=== PATIENT | female | born 1990 | race Caucasian/White ===

== ENCOUNTER 2019-02-04 13:22 | Emergency (ER) | payer OTHER ==
[2019-02-04 13:31] VITALS: BMI 39.8
[2019-02-04] MEDS ORDERED: ONDANSETRON 4 MG/2 ML VIAL IVPUSH ONE (13:40)
[2019-02-04] MEDS ORDERED: SODIUM CHLORIDE 1,000 ML IV STA (13:40)
[2019-02-04] MEDS ORDERED: FAMOTIDINE 20 MG/50 ML IVPB 20 MG/50 ML MG IVPB ONE ×2 (13:40→14:51)
--- NOTE | 2019-02-04 13:40 | PDOC ---
History of Present Illness - General Chief Complaint: Nausea/Vomiting Stated Complaint: VOMITING BLOOD/ HEADACHE Time Seen by Provider: 02/04/19 13:38 History Source: Patient Exam Limitations: No Limitations - History of Present Illness Initial Comments: Pt is a 28 yo F, with no significant PMH, who is presenting with complaints of nausea and vomiting since yesterday. Pt states she had multiple episodes of vomiting, with red streaks mixed in after multiple wretching episodes. She has never had hematemesis or blood in BMs, and does not take AC medication. Pt was unable to tolerate PO intake today. Pt recently had a home test a few weeks ago, and this would be her first . Pt also endorses cramping lower abdominal pain "for weeks," but denies any vaginal discharge or bleeding. Pt has not begun taking vitamins or seen an DISTRICT [employer] REPORTER doctor. Pt denies any fevers/chills, headache, vision changes, syncope, chest pain, palpitations, SOB, abdominal pain, urinary symptoms, diarrhea/constipation, or leg swelling. Allergies: NKDA PCP: Dr. Hartley Social: Pt denies any cigarette, alcohol, or drug use. Pt denies any recent travel or sick contacts. Surgical: no relevant history. Family: no relevant history. 02/04/19 15:15 02/04/19 17:00 Past History - Travel Traveled outside of the country in the last 30 days: No Close contact w/someone who was outside of country & ill: No - Past Medical History Allergies/Adverse Reactions: Allergies Allergy/AdvReac Type Severity Reaction Status Date / Time No Known Allergies Allergy Verified 02/04/19 13:31 Home Medications: Ambulatory Orders Cephalexin Monohydrate [Keflex -] 500 mg PO BID #14 capsule 02/04/19 Doxylamine Succinate/Vit B6 [Hue Morrison 10-10 mg Tablet] 1 each PO PRN PRN #14 tablet. MDD 1 tab 02/04/19 105/Iron/Folic AC/Dha [Prena1 True Combo Pack] 1 each PO DAILY #30 combo..pkg MDD 1 tab 02/04/19 COPD: No - Psycho Social/Smoking Cessation Hx Smoking History: Never smoked Abd/GI Specific PMHX - Complaint Specific PMHX Colitis: No Diverticulitis: No Gall Bladder Disease: No GERD: No Hepatitis: No Irritable Bowel Synd (IBS): No Pancreatitis: No GI Ulcer Disease: No Review of Systems - Review of Systems Able to Perform ROS?: Yes Is the patient limited Dominican proficient: No Constitutional: Yes: Weight Stable. No: Chills, Diaphoresis, Fever, Loss of Appetite, Weakness HEENTM: No: Recent change in vision, Nose Congestion, Throat Pain, Throat Swelling, Difficulty Swallowing Respiratory: No: Cough, Orthopnea, Shortness of Breath Cardiac (ROS): No: Chest Pain, Edema, Irregular Heart Rate, Lightheadedness, Palpitations, Syncope, Chest Tightness ABD/GI: Yes: Nausea, Poor Appetite, Poor Fluid Intake, Vomiting, Abdominal cramping. No: Abdominal Distended, Blood Streaked Bowels, Constipated, Diarrhea , Rectal Bleeding : No: Burning, Dysuria, Frequency, Hematuria, Pain, Urgency Musculoskeletal: No: Back Pain, Joint Pain, Muscle Pain, Muscle Weakness Integumentary: No: Change in Color, Pallor, Rash Neurological: No: Headache, Numbness, Weakness, Unsteady Gait, Dizziness Psychiatric: No: Sleep Pattern Change, Change in Appetite Endocrine: No: Increased Urine, Change in Weight Hematologic/Lymphatic: No: Anemia, Blood Clots, Easy Bleeding, Easy Bruising All Other Systems: Reviewed and Negative *Physical Exam - Vital Signs Last Vital Signs Temp Pulse Resp BP Pulse Ox 98 F 75 18 120/67 98 02/04/19 13:27 02/04/19 13:27 02/04/19 13:27 02/04/19 13:27 02/04/19 13:27 - Physical Exam Vitals stable, pt afebrile. Pt in NAD, morbidly obese body habitus. Pt alert and oriented x3. women specialist generally intact, muscular strength and sensation intact. No midline spinal tenderness, step-offs, or crepitus. Head normocephalic, atraumatic. Eyes PERRLA, EOMI. Oropharynx without erythema or exudates, no LAD b/l. No nasal congestion. Hearing intact. Clear heart sounds, S1/S2, no JVD, b/l pedal edema, or heart murmur. Clear lung sounds, no respiratory distress, wheezes, crackles, or accessory muscle use. Mild epigastric TTP, with no rebound, no guarding. No fundal height appreciated. Abdomen soft, non-distended, and with normoactive bowel sounds. No CVA TTP. Skin without jaundice or rash. 02/04/19 17:04 ED Treatment Course - LABORATORY CBC & Chemistry Diagram: 02/04/19 14:40 02/04/19 14:40 Medical Decision Making - Medical Decision Making Pt was seen at bedside, also will be seen by attending Dr. Estrada. Pt presenting with nausea/vomiting, likely 2/2 , with positive home test. Will evaluate with labs for anemia, beta-hcg (molar ), electrolyte imbalances, urine infection. Will obtain bedside POCUS for HR and IUP. Provided 1 L IV NS, 4 mg IV zofran, and 20 mg IV pepcid for improvement of nausea and vomiting. Will continue to reassess pt and monitor for symptomatic improvement. CBC and CMP WNL Beta hcg level appropriate Bedside POCUS showed good HR and early IUP UA with some bacteruria -- will treat with keflex Pt improved after interventions, abdomen soft and non-tender Sent keflex, vitamins, and diclegis to pts pharmacy. Strict return precautions provided with pt understanding. F/u with PCP and OB. 02/04/19 17:05 Discharge - Discharge Information Problems reviewed: Yes Clinical Impression/Diagnosis: Nausea and vomiting Qualifiers: Vomiting type: unspecified Vomiting Intractability: non-intractable Qualified Code(s): R11.2 - Nausea with vomiting, unspecified Qualifiers: Weeks of gestation: less than 8 weeks Qualified Code(s): Z3A.01 - Less than 8 weeks gestation of Condition: Improved Disposition: HOME - Admission No - Additional Discharge Information Prescriptions: Cephalexin Monohydrate [Keflex -] 500 mg PO BID #14 capsule Doxylamine Succinate/Vit B6 [Hue Morrison 10-10 mg Tablet] 1 each PO PRN PRN #14 tablet. MDD 1 tab PRN Reason: Nausea 105/Iron/Folic AC/Dha [Prena1 True Combo Pack] 1 each PO DAILY #30 combo..pkg MDD 1 tab - Follow up/Referral Referrals: Emperatriz Bird MD [Staff Physician] - Odilia Moon MD [Primary Care Provider] - - Patient Discharge Instructions Patient Printed Discharge Instructions: DI for Nausea -- Adult Additional Instructions: Please return to the emergency department with any new or worsening symptoms or concerns. Please follow up with your nailing machine feeder physician and/or primary care physician within 72 hours. - Post Discharge Activity
[2019-02-04 14:49] LABS: BASO % 0.9 % (0-2.0); EOS % 0.8 % (0-4.5); HEMATOCRIT 37.9 % (32.4-45.2); HEMOGLOBIN 12.6 GM/dL (10.7-15.3); LYMPH % 30.8 % (8-40); MCH 27.9 pg (25.7-33.7); MCHC 33.1 g/dl (32.0-36.0); MEAN CELL VOLUME 84.3 fl (80-96); MEAN PLT VOLUME 8.5 fl (7.5-11.1); MONO % 8.2 % (3.8-10.2); NEUT % 59.3 % (42.8-82.8); PLATELET COUNT 301 K/MM3 (134-434); RDW 14.5 % (11.6-15.6); WHITE BLOOD COUNT 10.2 K/mm3 (4.0-10.0)
[2019-02-04] MEDS ORDERED: ONDANSETRON 4 MG/2 ML VIAL ONE (14:51)
[2019-02-04 15:24] LABS: ALBUMIN 3.2 g/dl (3.4-5.0); BILIRUBIN,TOTAL 0.4 mg/dL (0.2-1); BLOOD UREA NITROGEN 6.4 mg/dL (7-18); CALCIUM 8.7 mg/dL (8.5-10.1); CREATININE 0.6 mg/dL (0.55-1.3); POTASSIUM 4.6 mmol/L (3.5-5.1); TOT PROT 7.2 g/dl (6.4-8.2)
--- NOTE | 2019-02-04 15:46 | PDOC ---
Attending Attestation - Resident Resident Name: Claudette Couch - ED Attending Attestation I have performed the following: I have examined & evaluated the patient, The case was reviewed & discussed with the resident, I agree w/resident's findings & plan, Exceptions are as noted - HPI HPI: 02/04/19 16:11 28y F (LMP 11/23/2018) without other pmhx presents with complaint of n/v x 1 week, since last night with blood tingued (speckled) vomitus associated with intermittent burning nonradiating epigastric pain. Pt notes the vomiting has been going on for approx 1 month. denies any f/c, vag bleeding, diarrhea, dysuria, cp, sob. pt has no ob, recently moved to [place] - Physicial Exam PE: 02/04/19 17:11 general: no acute distress abd: soft notnender,. no cva tenderness, no rebound/guarding ext no LE edema - Medical Decision Making 02/04/19 16:13 labs reviewed bedside US reviewed with IUP and normal FHR Pt feeling improved suspect mild gastritis ua reviewed will start her on vitamins will dc with ob fu return precautions were dsicused
[2019-02-04 15:49] LABS: EPI CELLS 2.5 /HPF (0-5/HPF); HYALINE CASTS 4 /lpf (0-8); PH,URINE 8.5 (5.0-8.0); URINE APPEARANCE CLEAR; URINE BACTERIA 17.4 /hpf (NEGATIVE); URINE BILIRUBIN NEGATIVE (NEGATIVE); URINE COLOR YELLOW; URINE GLUCOSE (UA) NEGATIVE (NEGATIVE); URINE KETONE NEGATIVE (NEGATIVE); URINE LEUK ESTERASE TRACE (NEGATIVE); URINE NITRITE NEGATIVE (NEGATIVE); URINE PROTEIN NEGATIVE (NEGATIVE); URINE RBC 1 /hpf (0-4); URINE UROBILINOGEN 0.2 mg/dL (0.2-1.0); URINE WBC 12 /hpf (0-5)
[2019-02-04] MEDS ORDERED: CEPHALEXIN MONOHYDRATE 500 MG CAPSULE (UD) PO ONE (16:28)
[2019-02-04] MEDS ORDERED: CEPHALEXIN MONOHYDRATE 500 MG CAPSULE (UD) ONE (16:57)
[2019-02-04 17:08] VITALS: BP 109/63; PULSE 68; TEMP 98.7
== END 2019-02-04 17:26 | disposition home or self-care (01) ==
LOC: JER 13:22
PROC: 3E033GC Introduction of Other Therapeutic Substance into Peripheral Vein, Percutaneous Approach (ICD-10-PCS; principal; 2019-02-04)
PROC: 3E033GC Introduction of Other Therapeutic Substance into Peripheral Vein, Percutaneous Approach (ICD-10-PCS; 2019-02-04)
PROC: BY49ZZZ Ultrasonography of First Trimester, Single Fetus (ICD-10-PCS; 2019-02-04)
DX: O26.891 Other specified pregnancy related conditions, first trimester (principal); K29.70 Gastritis, unspecified, without bleeding; Z3A.01 Less than 8 weeks gestation of pregnancy
CPT/HCPCS: 36415; 76801-TC; 76815; 80053; 81003; 83690; 84702; 85025; 87086; 96365; 96375; 99284-25; J7030

== ENCOUNTER 2019-09-21 20:30 | Inpatient (IN) | payer OTHER ==
--- NOTE | 2019-09-21 22:24 | HP ---
Past Medical History - Primary Care Physician PCP:: Nithin Mariano - Admission Chief Complaint: 40 wweks , rom History of Present Illness: 28 yo g 1 p0 40 weeks with rom since 745 pm tonight , no bleeding, no fever, good fm cx 1 cm, 50 vx -3 mr , mec stain AF. , efw 7.5 lb History Source: Patient Limitations to Obtaining History: No Limitations - Past Surgical History Hx Myomectomy: No Hx Transabdominal Cerclage: No - Smoking History Smoking history: Never smoked Home Medications - Allergies Allergies/Adverse Reactions: Allergies Allergy/AdvReac Type Severity Reaction Status Date / Time No Known Allergies Allergy Verified 09/20/19 22:47 - Home Medications Home Medications: Ambulatory Orders Cephalexin Monohydrate [Keflex -] 500 mg PO BID #14 capsule 02/04/19 Doxylamine Succinate/Vit B6 [Diclegis Dr 10-10 mg Tablet] 1 each PO PRN PRN #[address] MDD 1 tab 02/04/19 105/Iron/Folic AC/Dha [Prena1 True Combo Pack] 1 each PO DAILY #30 combo..pkg MDD 1 tab 02/04/19 Review of Systems - Review of Systems Constitutional: reports: No Symptoms Eyes: reports: No Symptoms HENT: reports: No Symptoms Neck: reports: No Symptoms Cardiovascular: reports: No Symptoms Respiratory: reports: No Symptoms Gastrointestinal: reports: No Symptoms Genitourinary: reports: No Symptoms Breasts: reports: No Symptoms Reported Musculoskeletal: reports: No Symptoms Integumentary: reports: No Symptoms Neurological: reports: No Symptoms Endocrine: reports: No Symptoms Hematology/Lymphatic: reports: No Symptoms Psychiatric: reports: No Symptoms Physical Exam - Maternity Constitutional: Yes: Obese - Abdominal Exam/OB Fundal Height: 40 Number of Fetuses: Single Presentation: Vertex Contractions: Yes Regularity: Irregular Monitor Mode: External Accelerations: Non-Uniform Decelerations: None - Vaginal Exam/OB Vaginal Bleeding: No Speculum Exam: No Dilatation (cm): 1 Effacement (%): 50 Amniotic Membrane Status: Ruptured Nitrazine Test: Positive Amniotic Fluid: Yes: Meconium Stained Presentation: Vertex/Position Station: -3 - Physical Exam Edema: Yes Edema: LLE: Trace, RLE: Trace Deep Tendon Reflex Grade: Normal +2 Psychiatric: Yes: WNL Hemorrhage Risk Assessment - Risk Factors Medium Risk Factors: Yes: None High Risk Factors: Yes: None Risk Score: 1 Risk Level: Medium Risk Problem List - Problems (1) 40 weeks gestation of Code(s): Z3A.40 - 40 WEEKS GESTATION OF (2) First stage of labor established Code(s): VEW6882 - (3) Obesity complicating childbirth Code(s): O99.214 - OBESITY COMPLICATING CHILDBIRTH Assessment/Plan admit fhm , cervidil induction pain management
[2019-09-21] MEDS ORDERED: DINOPROSTONE 10 MG VAGINAL SUPPOSITORY VG ONE ×2 (22:29→23:04)
[2019-09-21] MEDS ORDERED: BUTORPHANOL TARTRATE 2 MG/ML VIAL IVPUSH ONE (22:29)
[2019-09-21] MEDS ORDERED: PROMETHAZINE HCL 25 MG/1 ML VIAL IVPUSH ONE (22:29)
[2019-09-21] MEDS: ELECTROLYTE-148 SOLN 1,000 ML IV SCH (22:30)
[2019-09-21 22:37] LABS: BASO % 0.2 % (0-2.0); EOS % 0.6 % (0-4.5); HEMATOCRIT 35.1 % (32.4-45.2); HEMOGLOBIN 11.8 GM/dL (10.7-15.3); LYMPH % 24.3 % (8-40); MCHC 33.7 g/dl (32.0-36.0); MEAN CELL VOLUME 86.1 fl (80-96); MEAN PLT VOLUME 9.9 fl (7.5-11.1); MONO % 7.7 % (3.8-10.2); NEUT % 67.2 % (42.8-82.8); PLATELET COUNT 175 K/MM3 (134-434); RBC 4.07 M/mm3 (3.60-5.2); WHITE BLOOD COUNT 10.1 K/mm3 (4.0-10.0)
[2019-09-21 22:45] LABS: INR 0.92 (0.83-1.09); PROTHROMBIN TIME (PATIENT) 10.9 SEC (9.7-13.0)
[2019-09-21 23:02] VITALS: BMI 47.0
[2019-09-21 23:02] LABS: BLOOD UREA NITROGEN 4.8 mg/dL (7-18); CALCIUM 9.2 mg/dL (8.5-10.1); CREATININE 0.5 mg/dL (0.55-1.3); POTASSIUM 3.7 mmol/L (3.5-5.1)
--- NOTE | 2019-09-21 23:12 | PD.OB.PROG ---
Past Medical History - Primary Care Physician PCP:: Nithin Mariano Documenting Provider Type: Laborist - Admission Chief Complaint: ROM - Nursing Documentation Maternal Triage Index: Maternal Triage Index ( Priority 3, Prompt MFTI) Hemorrhage Risk Assessment: Risk Level Low Risk High Level Risk Factors for None Hemorrhage Medium Level Risk Factors for None of the above Hemorrhage Low Level Risk Factors for None of the above Hemorrhage Nursing Documentation Reviewed: Yes - Past Medical History DIRECTOR GLOBAL DEVELOPMENT: Denies/None Cardio/Vascular: Denies/None Pulmonary: Denies/None Gastrointestinal: Denies/None Hepatobiliary: Denies/None Renal/: Denies/None ...: 1 ...Para: 0 ...Term: 0 ...: 0 ...Spon : 0 ...Induced : 0 ...Living Children: 0 ...Multiple Gestation: 0 ...LMP: 11/23/18 ... Weeks Gestation by Dates: 40.0 ...EDC by Dates: 08/30/19 ...EDC by Sono: 09/21/19 Heme/Onc: Denies/None Infectious Disease: Denies/None Psych: Denies/None Musculoskeletal: Denies/None Rheumatology: Denies/None ENT: Denies/None Endocrine: Denies/None Dermatology: Denies/None - Past Surgical History Past Surgical History: Yes: None - Smoking History Smoking history: Never smoked Have you smoked in the past 12 months: No - Alcohol/Substance Use Hx Alcohol Use: No Review of Systems - Review of Systems Constitutional: reports: No Symptoms Eyes: reports: No Symptoms HENT: reports: No Symptoms Neck: reports: No Symptoms Cardiovascular: reports: No Symptoms Respiratory: reports: No Symptoms Gastrointestinal: reports: No Symptoms Genitourinary: reports: No Symptoms Breasts: reports: No Symptoms Reported Musculoskeletal: reports: No Symptoms Integumentary: reports: No Symptoms Neurological: reports: No Symptoms Endocrine: reports: No Symptoms Hematology/Lymphatic: reports: No Symptoms Psychiatric: reports: No Symptoms Physical Exam - Obstetrical Vital Signs: Vital Signs Temperature 98.7 F 09/21/19 20:30 Pulse Rate 61 09/21/19 20:30 Respiratory Rate 20 09/21/19 20:30 Blood Pressure 126/70 09/21/19 20:30 O2 Sat by Pulse Oximetry (%) Constitutional: Yes: Well Nourished, No Distress, Calm Eyes: Yes: WNL, Conjunctiva Clear, EOM Intact HENT: Yes: WNL, Atraumatic, Normocephalic Neck: Yes: WNL, Supple, Trachea Midline Cardiovascular: Yes: WNL, Regular Rate and Rhythm Lungs: Clear to auscultation Breast(s): Yes: WNL - Abdominal Exam/OB Fundal Height: 42 Contractions: Yes Regularity: Irregular Intensity: Mild Monitor Mode: External Heart Rate (range): 140 Heart Rate Location: [facility] Category: I Accelerations: Uniform Decelerations: None - Vaginal Exam/OB Vaginal Exam Deferred: No Vaginal Bleeding: No Dilatation (cm): 0 Effacement (%): 0 Amniotic Membrane Status: Ruptured Nitrazine Test: Positive Amniotic Fluid: Yes: Meconium Stained Meconium: Moderate Presentation: Vertex/Position Station: -2 - Physical Exam Musculoskeletal: Yes: WNL Extremities: Yes: WNL Integumentary: Yes: WNL ...Motor Strength: WNL Psychiatric: Yes: WNL - Labs Lab Results: CBC, BMP 09/21/19 22:30 09/21/19 22:30 Problem List - Problems (1) PROM (premature rupture of membranes) Code(s): O42.90 - MELODY ROM, 7TH0 BETW RUPT & ONST LABR, UNSP WEEKS OF GEST (2) 40 weeks gestation of Code(s): Z3A.40 - 40 WEEKS GESTATION OF Assessment/Plan PROM at term. Meconium. D/W Dr. Goldman. Cervidil induction. Pt. understands and agrees.
--- NOTE | 2019-09-21 23:22 | PN ---
Progress Note (short form) - Note Progress Note: Cervidil placed at 2100 hrs Problem List - Problems (1) PROM (premature rupture of membranes) Code(s): O42.90 - MELODY ROM, 7TH0 BETW RUPT & ONST LABR, UNSP WEEKS OF GEST (2) 40 weeks gestation of Code(s): Z3A.40 - 40 WEEKS GESTATION OF
[2019-09-21] MEDS ORDERED: CLINDAMYCIN PHOSPHATE 600 MG/4 ML VIAL ONE ×2 (23:24→23:25)
[2019-09-21] MEDS ORDERED: CLINDAMYCIN 900 MG PREMIX IVPB 900 MG/50 ML BAG IVPB ONE (23:30)
[2019-09-21] MEDS: CLINDAMYCIN 600MG PREMIX IVPB 600 MG/50 ML BAG IVPB SCH (23:30)
[2019-09-22] MEDS ORDERED: PROMETHAZINE HCL 25 MG/1 ML VIAL ONE (00:06)
[2019-09-22] MEDS ORDERED: BUTORPHANOL TARTRATE 2 MG/ML VIAL ONE (00:06)
[2019-09-22] MEDS ORDERED: CLINDAMYCIN PHOSPHATE 600 MG/4 ML VIAL ONE ×3 (05:27→17:32)
[2019-09-22] MEDS: CLINDAMYCIN 600MG PREMIX IVPB 600 MG/50 ML BAG IVPB SCH ×4 (05:30→11:49)
--- NOTE | 2019-09-22 05:59 | PN ---
Progress Note, Labor Vaginal Exam #2 Labor Exam Date: 09/22/19 Labor Exam Time: 06:00 Heart Rate (range): 140 Dilatation: 3 Effacement (%): 80 Amniotic Membrane Status: Ruptured Presentation: Vertex/Position Station: -2 (Cervidil still in. Epidural called.)
[2019-09-22] MEDS ORDERED: FENTANYL/BUPIVACAINE/NS/PF - PCEA - 50 ML DISP.SYRIN EP ONE ×2 (06:05→10:42)
[2019-09-22] MEDS ORDERED: PCA PUMP NR ONE (06:06)
[2019-09-22] MEDS ORDERED: FENTANYL/BUPIVACAINE/NS/PF - PCEA - 50 ML DISP.SYRIN EP SCH (06:15)
[2019-09-22] MEDS ORDERED: NALOXONE HCL 0.4 MG/ML VIAL IVPUSH PRN (06:15)
[2019-09-22] MEDS ORDERED: BUPIVACAINE HCL/PF 0.25% (2.5MG/ML) 10 ML VIAL ONE (06:17)
[2019-09-22] MEDS: DEXTROSE 5%-LACTATED RINGERS 1,000 ML IV SCH ×2 (08:09→23:49)
[2019-09-22] MEDS: ELECTROLYTE-148 SOLN 1,000 ML IV SCH (09:00)
--- NOTE | 2019-09-22 10:52 | PN ---
Progress Note, Labor Vaginal Exam #3 Labor Exam Date: 09/22/19 Labor Exam Time: 10:50 Heart Rate (range): 140 Dilatation: 4 Effacement (%): 100 Amniotic Membrane Status: Ruptured Presentation: Vertex/Position Station: -2 (Cervidil out. We'll start Oxytocin.)
[2019-09-22] MEDS ORDERED: OXYTOCIN 30 UNITS in 0.9% NS 30 UNIT/500 ML INFUS.BAG IVPB ONE (11:37)
[2019-09-22] MEDS ORDERED: GENTAMICIN 80 MG PREMIXED IVPB 80 MG/100 ML BAG IVPB STA (13:13)
[2019-09-22] MEDS ORDERED: GENTAMICIN SO4 80 MG/2 ML VIAL ONE (13:31)
[2019-09-22] MEDS ORDERED: LIDO 2%/EPI 1:200000 PRESRVFRE (20 ML SDVIAL) ONE (14:24)
[2019-09-22] MEDS ORDERED: PROPOFOL 20 ML ONE (14:30)
[2019-09-22] MEDS ORDERED: CITRIC ACID/SODIUM CITRATE 30 ML UNIT-DOSE CUP PO ONE (14:37)
[2019-09-22] MEDS ORDERED: OXYTOCIN 20 UNITS in 0.9% NS 20 UNIT/1,000 ML INFUS.BAG IV ONE ×2 (15:23→16:42)
[2019-09-22] MEDS ORDERED: morphine SULFATE/PF 0.5 MG/ML (2cc Syringe - QUVA) ONE ×2 (16:00)
--- NOTE | 2019-09-22 16:03 | PN ---
Progress Note (short form) - Note Progress Note: I assisted Dr Mariano at c/section and BTL for the entirety of the case. Problem List - Problems (1) PROM (premature rupture of membranes) Code(s): O42.90 - MELODY ROM, 7TH0 BETW RUPT & ONST LABR, UNSP WEEKS OF GEST (2) 40 weeks gestation of Code(s): Z3A.40 - 40 WEEKS GESTATION OF
[2019-09-22] MEDS ORDERED: BENZOCAINE 28 GM HEMORRHOIDAL OINTMENT PR PRN (16:26)
[2019-09-22] MEDS ORDERED: oxyCODONE HCL 5 MG TABLET PO PRN ×2 (16:26)
[2019-09-22] MEDS ORDERED: BENZOCAINE 20% 57 GM BOTTLE TP PRN (16:26)
[2019-09-22] MEDS ORDERED: METHYLERGONOVINE MALEATE 0.2 MG/1 ML AMP IM PRN (16:26)
[2019-09-22] MEDS ORDERED: WITCH HAZEL 50% (TUCKS) 40 PAD/JAR PAD TP PRN (16:26)
[2019-09-22] MEDS ORDERED: diphenhydrAMINE HCL 25 MG CAPSULE (FP) PO PRN (16:26)
[2019-09-22] MEDS ORDERED: OXYTOCIN 20 UNITS in 0.9% NS 20 UNIT/1,000 ML INFUS.BAG IV SCH (16:30)
--- NOTE | 2019-09-22 16:32 | OP ---
Operative Note - Note: Operative Date: 09/22/19 Pre-Operative Diagnosis: 40 weeks, rom, failure to dilate, meconium, intrapartum fever, sterlization Operation: primary LST c/s, BTL Findings: live baby girl ROT, cord around foot , mec. AF , 11/12 Post-Operative Diagnosis: Same as Pre-op Surgeon: Nithin Mariano Desk Manager: Kristofer Sauceda Anesthesia: Epidural Specimens Removed: placenta, portion RT, LT tube Estimated Blood Loss (mls): 500 Drains & Tubes with Location: miles Blood Volume Replaced (mls): 0 Operative Report Dictated: Yes
[2019-09-22 16:34] LABS: CORD HCO3 24.2 mmHg (20-29); CORD PCO2 61.8 mmHg (30-78)
[2019-09-22 16:36] LABS: CORD BASE EXCESS -4.7 mmol/L (0-2); CORD HCO3 21.7 mmHg (20-29); CORD PCO2 44.7 mmHg (30-78); CORD pH 7.304 (7.14-7.44)
[2019-09-22] MEDS ORDERED: IBUPROFEN 800 MG/8 ML IJ IVPB ONE (16:39)
[2019-09-22] MEDS: IBUPROFEN 800 MG/8 ML IJ IVPB PRN ×2 (16:48→21:28)
[2019-09-22] MEDS: CLINDAMYCIN 900 MG PREMIX IVPB 900 MG/50 ML BAG IVPB SCH (17:35)
[2019-09-23] MEDS: CLINDAMYCIN 900 MG PREMIX IVPB 900 MG/50 ML BAG IVPB SCH ×3 (06:27→11:32)
[2019-09-23] MEDS: IBUPROFEN 600 MG TABLET (FP) PO PRN ×2 (07:38→16:57)
[2019-09-23] MEDS: ACETAMINOPHEN 325 MG TABLET (FP) PO PRN ×2 (07:39→16:57)
[2019-09-23] MEDS: SIMETHICONE 80 MG TAB.CHEW (FP) PO PRN ×2 (07:40→16:57)
[2019-09-23 08:21] LABS: BASO % 0.2 % (0-2.0); EOS % 0.4 % (0-4.5); HEMATOCRIT 29.8 % (32.4-45.2); HEMOGLOBIN 9.8 GM/dL (10.7-15.3); LYMPH % 15.9 % (8-40); MCH 28.3 pg (25.7-33.7); MCHC 32.8 g/dl (32.0-36.0); MEAN CELL VOLUME 86.4 fl (80-96); MEAN PLT VOLUME 9.2 fl (7.5-11.1); MONO % 8.2 % (3.8-10.2); NEUT % 75.3 % (42.8-82.8); PLATELET COUNT 141 K/MM3 (134-434); RBC 3.45 M/mm3 (3.60-5.2); WHITE BLOOD COUNT 11.1 K/mm3 (4.0-10.0)
[2019-09-23 09:17] LABS: POC NITRAZINE POS
[2019-09-23] MEDS: ENOXAPARIN NA (PORCINE) 40 MG/0.4 ML DISP.SYRIN SQ SCH (09:30)
--- NOTE | 2019-09-23 10:34 | PN ---
Progress Note (short form) - Note Progress Note: POD #1 s/p C/s under epidural with duramorph. Doing well, pain controlled, denies puritus/n/v. All questions answered.
[2019-09-23] MEDS ORDERED: BISACODYL 10 MG SUPP.RECT PR PRN (16:26)
--- NOTE | 2019-09-23 19:23 | PN ---
Progress Note (short form) - Note Progress Note: pod1 s/p c/s, ambulating .doing well CBC, BMP 09/23/19 08:00 09/21/19 22:30 Last Vital Signs Temp Pulse Resp BP Pulse Ox 98.9 F 99 H 18 115/77 97 09/23/19 18:00 09/23/19 18:00 09/23/19 18:00 09/23/19 18:00 09/23/19 09:00 abdomen soft, no distension, no cva incision dry, clean no calf tenderness no excess vaginal bleeding plan ambulate DVT prophylaxis advance diet pnv repeat cbc day 3 Problem List - Problems (1) 40 weeks gestation of Code(s): Z3A.40 - 40 WEEKS GESTATION OF (2) First stage of labor established Code(s): EDM2830 - (3) Obesity complicating childbirth Code(s): O99.214 - OBESITY COMPLICATING CHILDBIRTH
[2019-09-24] MEDS: ACETAMINOPHEN 325 MG TABLET (FP) PO PRN ×3 (03:56→20:43)
[2019-09-24] MEDS: SIMETHICONE 80 MG TAB.CHEW (FP) PO PRN ×3 (03:56→20:45)
[2019-09-24] MEDS: IBUPROFEN 600 MG TABLET (FP) PO PRN ×3 (03:56→20:43)
--- NOTE | 2019-09-24 08:00 | PN ---
Post Progress Note - Subjective Subjective: Ambulating, tolerating PO, lochia decreased, voiding. C/S performed on 09/22/19 in early evening. Post Day: 2 Type of Delivery: Primary C/S Vital Signs: Vital Signs Temperature 98.2 F 09/23/19 22:00 Pulse Rate 90 09/23/19 22:00 Respiratory Rate 20 09/23/19 22:00 Blood Pressure 136/82 09/23/19 22:00 O2 Sat by Pulse Oximetry (%) 97 09/23/19 09:00 Breast Exam: Yes: Other Uterus: Yes: Fundus Firm Incision: Yes: Sutures intact Abdomen/GI: Yes: Abdomen soft Lochia, amount: Moderate Extremities: Yes: Calves non-tender Perineum: Yes: Intact Activity: Ambulating - Labs Labs: CBC WBC 11.1 K/mm3 (4.0-10.0) H 09/23/19 08:00 RBC 3.45 M/mm3 (3.60-5.2) L 09/23/19 08:00 Hgb 9.8 GM/dL (10.7-15.3) L 09/23/19 08:00 Hct 29.8 % (32.4-45.2) L D 09/23/19 08:00 MCV 86.4 fl (80-96) 09/23/19 08:00 MCH 28.3 pg (25.7-33.7) 09/23/19 08:00 MCHC 32.8 g/dl (32.0-36.0) 09/23/19 08:00 RDW 15.0 % (11.6-15.6) 09/23/19 08:00 Plt Count 141 K/MM3 (134-434) 09/23/19 08:00 MPV 9.2 fl (7.5-11.1) 09/23/19 08:00 Absolute Neuts (auto) 8.3 K/mm3 (1.5-8.0) H 09/23/19 08:00 Neutrophils % 75.3 % (42.8-82.8) 09/23/19 08:00 Lymphocytes % 15.9 % (8-40) D 09/23/19 08:00 Monocytes % 8.2 % (3.8-10.2) 09/23/19 08:00 Eosinophils % 0.4 % (0-4.5) 09/23/19 08:00 Basophils % 0.2 % (0-2.0) 09/23/19 08:00 Nucleated RBC % 0 % (0-0) 09/23/19 08:00 Assessment/Plan 28 y/o on POD # 2 in stable condition, S/P PLTCS < 48hours post op, morbidly obese -Continue PP/post care -Encourage ambulation -D/C home tomorrow AM
[2019-09-24] MEDS: ENOXAPARIN NA (PORCINE) 40 MG/0.4 ML DISP.SYRIN SQ SCH (10:11)
[2019-09-24] MEDS ORDERED: SENNOSIDES/DOCUSATE COMBO (SENNA PLUS) TABLET (UD) PO PRN (22:00)
[2019-09-25 09:04] LABS: BASO % 0.3 % (0-2.0); EOS % 0.7 % (0-4.5); HEMATOCRIT 28.6 % (32.4-45.2); HEMOGLOBIN 9.7 GM/dL (10.7-15.3); MCH 29.3 pg (25.7-33.7); MCHC 33.8 g/dl (32.0-36.0); MEAN CELL VOLUME 86.6 fl (80-96); MEAN PLT VOLUME 9.4 fl (7.5-11.1); MONO % 6.4 % (3.8-10.2); NEUT % 82.6 % (42.8-82.8); PLATELET COUNT 163 K/MM3 (134-434); RDW 15.5 % (11.6-15.6)
[2019-09-25 09:08] VITALS: BP 118/84; PULSE 88; TEMP 98.6
--- NOTE | 2019-09-25 10:04 | DS ---
Physical Exam-CLINICAL APPLICATION MANAGER Vital Signs: Vital Signs Temperature 98.6 F 09/25/19 09:05 Pulse Rate 88 09/25/19 09:05 Respiratory Rate 20 09/25/19 09:05 Blood Pressure 118/84 09/25/19 09:05 O2 Sat by Pulse Oximetry (%) 97 09/23/19 09:00 Constitutional: Yes: Well Nourished, Obese, Other (pain scale 4-5/10) Eyes: Yes: WNL HENT: Yes: WNL Neck: Yes: WNL Cardiovascular: Yes: WNL Respiratory: Yes: WNL Gastrointestinal: Yes: WNL, Normal Bowel Sounds, Soft, Abdomen, Obese, Other (bm not done , tolerating food well) Renal/: Yes: WNL. No: CVA Tenderness - Left, CVA Tenderness - Right ....Post : Yes: Uterus firm, Uterus tender, Moderate lochia rubra Breast(s): Yes: WNL, Other (soft, attempting BF , no milk yet) Musculoskeletal: Yes: WNL Extremities: Yes: WNL. No: Calf Tenderness Edema: LLE: 1+, RLE: 1+ Wound/Incision: Yes: Clean/Dry, Well Approximated, Sutures Intact (intradermal sutres), Open to air Neurological: Yes: WNL, Alert, Oriented ...Motor Strength: WNL Psychiatric: Yes: WNL Labs: CBC, BMP 09/25/19 08:46 09/21/19 22:30 Delivery - Delivery Type of Anesthesia: Epidural EBL (cc): 500 Delivery, Single - Stages of Labor Date 1st Stage Initiatied: 09/22/19 Time 1st Stage Initiated: 00:00 Date of Delivery: 09/22/19 Time of Delivery: 15:22 Time Placenta Delivered: 15:23 - Condition of Infant Job Coaching/Baler Present: Yes Name: Dipti Hancock Gender: Female Weight: 7 lb 5 oz Position: Right, OP, OT Total Hours ROM (Hrs/Mins): 19 hours 37 minutes - 1 Minute Total Score: 9 5 Minutes Total Score: 9 - Feeding Plan Initial Plan: Elected not to breastfeed exclusively throughout hospitalization Remarks - Remarks Remarks: post op stable discharge today Discharge Summary Problems reviewed: Yes Reason For Visit: LABOR ADMIT Current Active Problems 40 weeks gestation of (Acute) First stage of labor established (Acute) Obesity complicating childbirth (Acute) PROM (premature rupture of membranes) (Acute) Condition: Stable - Instructions Diet, Activity, Other Instructions: Discharge Instructions * Out of Bed * * Regular Diet * Galina Care * Avoid sex for 6 weeks * rtc 1 week for wound check , pp visit If you experience excessive bleeding or fever over 101 degrees, call doctor, the clinic or go to the Emergency Room. Referrals: Odilia Moon MD [Primary Care Provider] - Nithin Mariano MD [Staff Physician] - Disposition: HOME - Home Medications Comprehensive Discharge Medication List: Ambulatory Orders Acetaminophen [Tylenol .Regular Strength -] 500 mg PO Q4H PRN #30 tablet 09/25/19 Ferrous Sulfate [Feosol] 325 mg PO BID #60 tablet 09/25/19 Ibuprofen [Motrin -] 600 mg PO Q4H PRN #30 tablet 09/25/19 105/Iron/Folic AC/Dha [Prena1 True Combo Pack] 1 each PO DAILY #30 combo..pkg MDD 1 tab 09/25/19 Sennosides/Docusate Sodium [Pericolace -] 2 tablet PO HS PRN #30 tablet 09/25/19
[2019-09-25] MEDS: ENOXAPARIN NA (PORCINE) 40 MG/0.4 ML DISP.SYRIN SQ SCH (10:06)
--- NOTE | 2019-09-25 15:38 | OP ---
DATE OF OPERATION: 09/22/2019 PREOPERATIVE DIAGNOSIS: 40 weeks, ruptured membranes, meconium amniotic fluid with failure to dilate and intrapartum fever. POSTOPERATIVE DIAGNOSIS: 40 weeks, ruptured membranes, meconium amniotic fluid with failure to dilate and intrapartum fever. PROCEDURE: Primary low segment transverse section and bilateral tubal ligation. SURGEON: Nithin Mariano MD CARDIOLOGY FELLOW: Kristofer Sauceda MD ANESTHESIA: Epidural. ANESTHESIOLOGIST: ESTIMATED BLOOD LOSS: 500 mL. DESCRIPTION OF PROCEDURE: Patient was taken to the operating room under adequate epidural anesthesia. Abdomen and perineum was prepped and draped. Pfannenstiel abdominal skin incision was made. Abdominal wall was cut layer by layer until peritoneum was exposed and incised. Upon entering the abdominal cavity, bowels were packed away with 2 lap pads and then lower transverse uterine segment was identified. Uterovesical fold of peritoneum established. Bladder was pushed down, and low transverse uterine incision was made. Incision extended laterally with bandage scissors. Meconium in amniotic fluid noted. Head delivered from right occiput posterior position. Nasopharynx was suctioned. Live baby was delivered without any difficulty. Cord around the foot. Placenta was delivered manually. Uterine cavity was cleaned of all remaining tissue. Uterine incision was closed in 2 layers, first layer with 0 Biosyn continuous suture, the second layer with 0 Biosyn imbricating the 1st layer. Bladder flap was closed with 0 Biosyn continuous suture. Both tubes and ovaries were checked, were normal. Right tube was grasped with William clamp. Right tube was doubly tied with 2-0 plain. Portion of the tube was removed, and endosalpinx was cauterized. No active bleeding was seen. Pelvic cavity several times irrigated. All of the lap pad, sponge, and instrument counts were correct. Peritoneum was closed with 0 Biosyn continuous suture. Muscles were brought together with interrupted sutures of 0 Biosyn Fascia was closed with 0 Biosyn continuous suture, subcutaneous fat interrupted suture of 0 Biosyn, and the skin was closed with 3-0 Vicryl subcuticular continuous suture. Patient tolerated procedure well. Left the OR in good condition. Elsie [id number]
--- NOTE | 2019-09-26 18:45 | PATH ---
Surgical Pathology Report Patient Name: PARIS BHARDWAJ [facility]. Rec. 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 Specimen(s) Received A: PLACENTA B: LEFT FALLOPIAN TUBE C: RIGHT FALLOPIAN TUBE Clinical History , 40.1 weeks gestation, rupture of membranes, failure to dilate, intrapartum maternal fever Final Diagnosis A. PLACENTA, SECTION: 618 G THIRD TRIMESTER PLACENTA WITH FOCAL INTRAPARENCHYMAL INFARCT (~5% OF PLACENTAL SURFACE). MEMBRANES WITH MODERATE ACUTE CHORIOAMNIONITIS AND MECONIUM-LADEN MACROPHAGES. TRIVASCULAR UMBILICAL CORD. B. FALLOPIAN TUBE, LEFT, PARTIAL EXCISION: FULL LUMINAL PORTION OF UNREMARKABLE FALLOPIAN TUBE. C. FALLOPIAN TUBE, RIGHT, PARTIAL EXCISION: FULL LUMINAL PORTION OF UNREMARKABLE FALLOPIAN TUBE. Electronically Signed Roxi Contreras M.D. Gross Description A. The specimen is received fresh labeled placenta and is a 618 gram, 20.5 x 18.0 x 3.8 cm. placenta with attached membranes and umbilical cord. The attached membranes are mireles green, meconium stained, translucent with focal opacities and insert marginally. The umbilical cord measures 16 cm. in length and averages 1 cm. in diameter. The cord inserts eccentrically, 4.5 cm. to the nearest margin. No true knots or strictures are identified. Cut surface of the umbilical cord reveals 3 vessels. The surface is reddy-blue with minimal fibrin deposition and appropriate caliber vessels. The maternal surface is red-brown with focal defects. Sectioning reveals a 1.6 cm greatest dimension mireles intraparenchymal lesion. The remaining placental parenchyma is red-brown and spongy. Lube Man sections are submitted in three cassettes as follows: 1-membrane roll and umbilical cord; 2-lesion; 5-bsoh-btjphwksx section of placenta. B. Received in formalin labeled "fallopian tube portion left," is a 1.1 cm in length portion of fallopian tube. No fimbria are present. The outer surface is mireles-botello and smooth. Sectioning reveals an unremarkable lumen. Lube Man sections are submitted in one cassette. C. Received in formalin labeled "right portion of fallopian tube," is a 1.0 cm in length portion of fallopian tube. No fimbria are present. The outer surface is mireles reddy and smooth. Sectioning reveals an unremarkable lumen. Lube Man sections are submitted in one cassette. 09/25/2019 [facility]09/25/2019
== END 2019-09-25 14:00 | disposition home or self-care (01) | DRG 540 ==
LOC: JLDR 20:30 → J3W 09-22 17:45
PROVIDERS: ADMIT Obstetrics & Gynecology; ATTEND Obstetrics & Gynecology
PROC: 3E0P7VZ Introduction of Hormone into Female Reproductive, Via Natural or Artificial Opening (ICD-10-PCS; principal; 2019-09-21)
PROC: 10D00Z1 Extraction of Products of Conception, Low, Open Approach (ICD-10-PCS; 2019-09-22)
PROC: 0UL70ZZ Occlusion of Bilateral Fallopian Tubes, Open Approach (ICD-10-PCS; 2019-09-22)
DX: O48.0 Post-term pregnancy (principal); O42.02 Full-term premature rupture of membranes, onset of labor within 24 hours of rupture; O75.2 Pyrexia during labor, not elsewhere classified; O99.214 Obesity complicating childbirth; E66.01 Morbid (severe) obesity due to excess calories; Z3A.40 40 weeks gestation of pregnancy; Z37.0 Single live birth; O69.89X0 Labor and delivery complicated by other cord complications, not applicable or unspecified; O62.0 Primary inadequate contractions; O77.0 Labor and delivery complicated by meconium in amniotic fluid; Z30.2 Encounter for sterilization; Z88.0 Allergy status to penicillin
CPT/HCPCS: 36415; 36600; 80048; 82803; 83986-QW; 85025; 85610; 85730; 86780; 86850; 86900; 86901; 88302-TC; 88307-TC; U0003

== ENCOUNTER 2019-10-04 20:25 | Emergency (ER) | payer OTHER ==
--- NOTE | 2019-10-04 21:21 | PDOC ---
Rapid Medical Evaluation Chief Complaint: Wound Time Seen by Provider: 10/04/19 21:19 Medical Evaluation: Allergies Allergy/AdvReac Type Severity Reaction Status Date / Time Penicillins Allergy Unknown Rash Verified 09/22/19 03:03 PENICILLIN Allergy Mild Rash Uncoded 09/22/19 03:02 10/04/19 21:20 I have performed a brief in-person evaluation of this patient. The patient presents with a chief complaint of:possible wound dehiscence, steri strips since fell off, pt s/p csection7/[address] [facility] romero. No f/c Pertinent physical exam findings:stable I have ordered the following:nothing The patient will proceed to the ED for further evaluation. Discharge Disposition - Diagnosis section wound complication - Referrals - Patient Instructions - Post Discharge Activity
[2019-10-04 21:22] VITALS: BMI 44.2
--- NOTE | 2019-10-04 23:14 | PDOC ---
History of Present Illness - General Chief Complaint: Wound Stated Complaint: OPEN WOUND Time Seen by Provider: 10/04/19 21:19 History Source: Patient Exam Limitations: No Limitations - History of Present Illness Initial Comments: 28 y/o female presenting to [facility] ER s/p on [address] Mariano complaining of four days of purulent discharge from the post-op wound. States the white colored discharge was worse on the first day. Endorses mild tenderness to the area without bleeding, significant lower abdominal pain, fevers, chills, or sweats. Was evaluated by mid-level provider at Dr. Eckert [facility] two days ago. Area was cleaned with hydrogen peroxide and closed with steri strips. Pt seeking emergent evaluation tonight because she continues to have some discharge and her appointment with her physician is not for another two weeks. Past History - Medical History Allergies/Adverse Reactions: Allergies Allergy/AdvReac Type Severity Reaction Status Date / Time Penicillins Allergy Unknown Rash Verified 10/04/19 21:20 PENICILLIN Allergy Mild Rash Uncoded 10/04/19 21:20 Home Medications: Ambulatory Orders Acetaminophen [Tylenol .Regular Strength -] 500 mg PO Q4H PRN #30 tablet 09/25/19 Ferrous Sulfate [Feosol] 325 mg PO BID #60 tablet 09/25/19 Ibuprofen [Motrin -] 600 mg PO Q4H PRN #30 tablet 09/25/19 105/Iron/Folic AC/Dha [Prena1 True Combo Pack] 1 each PO DAILY #30 combo..pkg MDD 1 tab 09/25/19 Sennosides/Docusate Sodium [Pericolace -] 2 tablet PO HS PRN #30 tablet 09/25/19 Sulfamethoxazole/Trimethoprim [Bactrim Ds -] 1 tab PO BID 5 Days #10 tablet 10/05/19 Asthma: No Cancer: No Cardiac Disorders: No COPD: No Diabetes: No HTN: No Seizures: No Thyroid Disease: No - Psycho-Social/Smoking History Smoking History: Never smoked Have you smoked in the past 12 months: No - Substance Abuse Hx (Audit-C & DAST Scrn) How often the patient has a drink containing alcohol: Never Score: In Men: 4 or > Positive; In Women: 3 or > Positive: 0 Screen Result (Pos requires Nsg. Audit-10AR): Negative Review of Systems - Review of Systems Able to Perform ROS?: Yes Comments:: 10 point review of systems completed. All systems negative except as noted above. *Physical Exam - Vital Signs Last Vital Signs Temp Pulse Resp BP Pulse Ox 98 F 67 18 146/87 99 10/04/19 21:17 10/04/19 21:17 10/04/19 21:17 10/04/19 21:17 10/04/19 21:17 - Physical Exam General Appearance: Yes: Nourished, Appropriately Dressed. No: Apparent Distress HEENT: positive: Normal Voice Neck: positive: Trachea midline, Supple Respiratory/Chest: positive: Normal Breath Sounds. negative: Respiratory Distress Cardiovascular: positive: Regular Rhythm, Regular Rate Gastrointestinal/Abdominal: positive: Soft, Other (Low transverse incision with purulent discharge from the left side of the wound. Able to probe approx 1.5 cm deep.). negative: Tender Extremity: positive: Normal Capillary Refill, Normal Range of Motion Integumentary: positive: Normal Color, Dry, Warm ED Treatment Course - LABORATORY CBC & Chemistry Diagram: 10/04/19 23:59 10/04/19 23:59 Medical Decision Making - Medical Decision Making 28 y/o female presenting with four days of discharge from post-op wound. Denies systemic signs of infection. Afebrile. Triage vitals unremarkable for hypote nsion or tachycardia. Physical exam as described above. Concern for post-op wound infection. Low suspicion for overlying cellulitis or deep space abscess. Wound was probed and a small amount of purulent discharge was expressed. No reddy-dishwater discharge- low suspicion for necrotizing fasciitis. Pt declined PO analgesia. CBC unremarkable for leukocytosis or leukopenia. CMP unremarkable for e lectrolyte derangement. Will prescribe PO Bactrim and refer pt to [facility]. Encouraged pt to call next business day to request urgent ED follow up visit. Also encouraged pt to return to ED for new or worsening symptoms. Case discussed with ED Attending Dr. Yessica Bennett M.D., PGY3 Emergency Medicine Resident Discharge - Discharge Information Problems reviewed: Yes Clinical Impression/Diagnosis: section wound complication Condition: Good Disposition: HOME - Admission No - Additional Discharge Information Prescriptions: Sulfamethoxazole/Trimethoprim [Bactrim Ds -] 1 tab PO BID 5 Days #10 tablet - Follow up/Referral Referrals: Nithin Mariano MD [Staff Physician] - - Patient Discharge Instructions Patient Printed Discharge Instructions: Trimethoprim/Sulfamethoxazole (Altern ative Therapy), DI for Wound Infection Additional Instructions: You were seen today for wound check. The area likely has an infection. I have sent a prescription for an antibiotic called Bactrim to your pharmacy. Take as directed on the package insert. I have included some further information about the medication for you to read. It is safe to breastfeed while taking this medication. It may decrease your milk production. Continue to supplement your babys feeds with formula. You should call your OBGYNs office on the next business day. Ask for an emergency room follow up for a possible wound infection. If you cannot make an appointment, return to the bed in the next 48-72 hours for a wound recheck. Return to the emergency room for new or worsening symptoms. Watch for a fever, sweats, worsening discharge from the wound, or worsening lower abdominal pain. These may be signs of a more serious infection. Print Language: CITIZEN OF [place] - Post Discharge Activity Work/Back to School Note: Back to Work
--- NOTE | 2019-10-04 23:28 | PDOC ---
Documentation entered by Pierce Cervantes SCRIBE, acting as scribe for Thania Juan MD. Thania Juan MD: This documentation has been prepared by the Helen mack Xhesika, SCRIBE, under my direction and personally reviewed by me in its entirety. I confirm that the documentation accurately reflects all work, treatment, procedures, and medical decision making performed by me. Attending Attestation - Resident Resident Name: Scott - ED Attending Attestation I have performed the following: I have examined & evaluated the patient, The case was reviewed & discussed with the resident, I agree w/resident's findings & plan, Exceptions are as noted - HPI HPI: 10/04/19 23:10 The patient is a 28 y/o F with no PMH who presents to the ED with possible wound dehiscence. Pt had a on 09/21 at [facility]. Patient states that she has been having some purulent discharge from her wound for approximately 4 days denies any fevers or chills did see Dr. cazares in 2 days ago at that time a few Steri- Strips were placed which have since fallen off she has noticed persistent drainage is here today for repeat evaluation. Denies any other complaints no abdominal pain Allergies: Penicillins 10/04/19 23:24 - Physicial Exam PE: 10/04/19 23:26 Awake alert no acute distress lungs are clear bilaterally heart is regular without murmurs rubs or gallops abdomen is obese the scar is noted for 2 areas of the left lateral incision where there is some dehiscence approximately 1 cm each there is some purulence expressible when probed with a Q-tip goes down approximately 1-1/2 cm. There is minimal surrounding erythema no palpable fluctuance minimally tender on my exam otherwise skin is warm and dry without rash neurologic patient is ANO x3 - Medical Decision Making 10/04/19 23:27 28-year-old female status post on 719 with signs of local wound infection 48 hours past evaluation by Dr. Muhammad here today for repeat ev aluation persistent purulence. On my exam there appears to be a small area of dehiscence with secondary infection there is minimal surrounding erythema no crepitus no palpable fluctuance. Plan to discuss with Dr. Muller patient will require antibiotics basic labs and coordinate plan of care and for close follow- up Discharge - Discharge Information Problems reviewed: Yes Clinical Impression/Diagnosis: section wound complication Condition: Good Disposition: HOME - Additional Discharge Information Prescriptions: Sulfamethoxazole/Trimethoprim [Bactrim Ds -] 1 tab PO BID 5 Days #10 tablet - Follow up/Referral Referrals: Nithin Mariano MD [Staff Physician] - - Patient Discharge Instructions Patient Printed Discharge Instructions: Trimethoprim/Sulfamethoxazole (Alternative Therapy), DI for Wound Infection Additional Instructions: You were seen today for wound check. The area likely has an infection. I have sent a prescription for an antibiotic called Bactrim to your pharmacy. Take as directed on the package insert. I have included some further information about the medication for you to read. It is safe to breastfeed while taking this medication. It may decrease your milk production. Continue to supplement your babys feeds with formula. You should call your OBGYNs office on the next business day. Ask for an emergency room follow up for a possible wound infection. If you cannot make an appointment, return to the bed in the next 48-72 hours for a wound recheck. Return to the emergency room for new or worsening symptoms. Watch for a fever, sweats, worsening discharge from the wound, or worsening lower abdominal pain. These may be signs of a more serious infection. Print Language: [place] - Post Discharge Activity Work/Back to School Note: Back to Work
[2019-10-05 00:12] LABS: BASO % 0.4 % (0-2.0); EOS % 1.3 % (0-4.5); HEMATOCRIT 36.1 % (32.4-45.2); HEMOGLOBIN 11.8 GM/dL (10.7-15.3); LYMPH % 29.2 % (8-40); MCH 27.9 pg (25.7-33.7); MCHC 32.7 g/dl (32.0-36.0); MEAN CELL VOLUME 85.5 fl (80-96); MEAN PLT VOLUME 8.4 fl (7.5-11.1); MONO % 6.5 % (3.8-10.2); NEUT % 62.6 % (42.8-82.8); PLATELET COUNT 385 K/MM3 (134-434); RBC 4.22 M/mm3 (3.60-5.2); RDW 15.4 % (11.6-15.6); WHITE BLOOD COUNT 11.5 K/mm3 (4.0-10.0)
[2019-10-05 00:57] LABS: BILIRUBIN,TOTAL 0.3 mg/dL (0.2-1); BLOOD UREA NITROGEN 13.5 mg/dL (7-18); CALCIUM 9.2 mg/dL (8.5-10.1); CREATININE 0.8 mg/dL (0.55-1.3); POTASSIUM 4.5 mmol/L (3.5-5.1)
[2019-10-05] MEDS ORDERED: SULFAMETHOXAZOLE/TRIMETHOPRIM 800MG/160MG D.S. TABLET PO ONE (01:06)
[2019-10-05] MEDS ORDERED: SULFAMETHOXAZOLE/TRIMETHOPRIM 800MG/160MG D.S. TABLET ONE (01:14)
[2019-10-05 01:17] VITALS: BP 138/79; PULSE 72; TEMP 97.9
== END 2019-10-05 01:17 | disposition home or self-care (01) ==
LOC: JER 20:25
DX: O86.01 Infection of obstetric surgical wound, superficial incisional site (principal)
CPT/HCPCS: 36415; 80053; 85025; 99283-25

== ENCOUNTER 2020-08-26 20:35 | Emergency (ER) | payer OTHER ==
[2020-08-26 20:54] VITALS: BP 116/75; PULSE 79; TEMP 98.3; BMI 44.6
== END 2020-08-26 23:05 | disposition left against medical advice (07) ==
LOC: JER 20:35
DX: R11.0 Nausea (principal); R10.84 Generalized abdominal pain
CPT/HCPCS: 99281-25